=== PATIENT | female | born 2000 | race Caucasian/White ===

== ENCOUNTER → 2022-04-07 | Day surgery (SDC) | payer OTHER ==
[~2022-04-07] MED LIST: IBUPROFEN600 MG PO; PERCOCET 5-3251 EACH PO
[2022-04-07 10:27] LABS: HEMOGLOBIN 14.2 gm/dl (12.3-15.3); RED BLOOD COUNT 4.74 M/UL (4.00-5.10)
== END | disposition home or self-care (01) ==
LOC: OR 09:45
PROVIDERS: Obstetrics & Gynecology
DX: O26.20 Pregnancy care for patient with recurrent pregnancy loss, unspecified trimester (principal); Z88.0 Allergy status to penicillin; J45.909 Unspecified asthma, uncomplicated
CPT/HCPCS: 81001; 84702; 85025; 86850; 86900; 86901; C1752; J1100; J1885; J2001; J2250; J2405; J2704; J2710; J3010